=== PATIENT | male | born 1970 | race Caucasian/White ===

== ENCOUNTER 2017-01-03 16:54 | Inpatient (IN) | payer OTHER ==
[~2017-01-03] VITALS: Ht 180.3 cm; Wt 98.9 kg
[~2017-01-03 16:54] MED LIST: KOMBIGLYZE XR 11 TE1 PO; LISINOPRIL 10MG10 MG PO; LOTRISONE 0.05%1 CRE TP
[2017-01-03 17:12] VITALS: BP 119/73
--- NOTE | 2017-01-03 17:28 | HISTORY AND PHYSICAL REPORT ---
Demographics: Admit date: 01/03/17 Chief complaint: Swelling around left buttock PRIMARY DIAGNOSIS: [REIANNAL ABCESS Allergies: Coded Allergies: NO KNOWN ALLERGIES (02/18/12) History of present illness: History of present illness: 46-year-old type II diabetic who presented to the office today with a chief complaint of swelling and drainage from his left buttock over the past 4 or 5 days with fever. No deep injury noted, no other locations of abscess or skin infection noted, but was noted to have perirectal abscess with worrisome features and admitted to hospital for IV antibiotics and surgical consultation Past medical history: Family HX Diabetes Yes CAD No Hypertension Yes Hyperlipidemia No Cancer No TB No General Angina: No [place]: No Hypertension? Yes Hyperlipidemia? No CHF? No COPD? No Asthma? No Hernia? No CVA? No Seizures? No Diabetes? Yes UTI? No Stones? No GB Disease: No Hepatitis? No Cataracts? No Glaucoma? No TB? No Cancer? No Past Surgical HX Previous Surgery?N Current home meds: Reported Medications CLOTRIMAZOLE W/ BETAMETHASONE (Lotrisone Cream) 1 CRE TP BID SAXAGLIPTIN HCL/METFORMIN HCL (Kombiglyze XR 5-1,000 MG Tab) 1 TER PO DAILY LISINOPRIL (Lisinopril) 10 MG PO DAILY Social Hx: Smoking HX Tobacco No Alcohol Alcohol: No Hx of Drug Use Drug Use? 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 Review of systems: Constitutional fever. No: malaise, weakness. Respiratory No: no symptoms reported. Cardiovascular No no symptoms reported Gastrointestinal/Abdominal No no symptoms reported Genitourinary No: no symptoms reported. Musculoskeletal see HPI. Skin see HPI. Neurological No: see HPI. Exam: Lab data for last 24 hours: Microbiology 01/03 UNK BLOOD: Anaerobic Blood Culture - ORD 01/03 UNK BLOOD: Aerobic Blood Culture - ORD 01/03 UNK BLOOD: Anaerobic Blood Culture - ORD 01/03 UNK BLOOD: Aerobic Blood Culture - ORD Admission vital signs: 1ST Vital Signs Result Date Time Pulse Ox 97 01/03 1712 B/P 119/73 01/03 171 O2 Delivery ROOM AIR 01/03 171 Temp 98.1 01/03 171 Pulse 70 01/03 1712 Resp 18 01/04 1712 Exam General appearance: normal appearance, alert, awake Eyes: normal exam, anicteric Neck: normal inspection, non-tender, no carotid bruit, no JVD Cardiovascular: normal exam Respiratory: normal exam, clear to auscultation ABD: normal exam, non-distended, normal bowel sounds Musculoskeletal: normal exam, equal muscle strength Skin: On the underside of the left buttock into the left perineal area is a raised, fluctuant abscess with pain/swelling radiating into the left post. testicle. No drainage noted at this time. Very tender. Plan: Problem List 1. Perianal abscess 2. Diabetes type 2, controlled Plan: Given his diabetic status, over 5 days of symptoms, size and location of the abscess patient needs admitted for surgical evaluation and IV antibiotics. at 1722
[2017-01-03 18:08] VITALS: BP 119/73
--- NOTE | 2017-01-03 18:11 | CONSULT NOTE ---
See Addendum Standard Demographics Patient Demo Date of Consultation: 01/03/17 Referring Provider: Bashir Barksdale MD Reason for Consultation: abscess PRIMARY DIAGNOSIS: [REIANNAL ABCESS Allergies: Coded Allergies: NO KNOWN ALLERGIES (02/18/12) History of Present Illness Chief Complaint: Sore placed below the LEFT testicle History of Present Illness: Patient is a very pleasant 46-year-old male. 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 He states that about 4-5 days ago he developed what was consistent with a small pimple-like skin infection on the LEFT gluteal region. It had apparently enlarged in size and become tender. He had some drainage. He saw his primary physician and was found to have a significant abscess at the location in question. Patient was admitted for inpatient management this evening and surgical consultation. Past Medical History Reports: hypertension, diabetes mellitus. Denies: CAD. Surgical History Previous Surgery?N Allergies Coded Allergies: NO KNOWN ALLERGIES (02/18/12) Medications: Reported Medications CLOTRIMAZOLE W/ BETAMETHASONE (Lotrisone Cream) 1 CRE TP BID SAXAGLIPTIN HCL/METFORMIN HCL (Kombiglyze XR 5-1,000 MG Tab) 1 TER PO DAILY LISINOPRIL (Lisinopril) 10 MG PO DAILY Smoking Hx Tobacco: No Smoker: Never Smoker Type: N/A Packs/day: N/A Are you/the child exposed to second-hand smoke: No Alcohol Alcohol: No Hx of Drug Use Drug Use? No Review of Systems Constitutional No: chills. Skin Positive for: swelling. Immune/allergy No: allergy. Eyes No: vision loss. ENT No: hearing loss. Respiratory No: shortness of air. Cardiovascular No: chest pain. GI No: abdomen. (male) Positive for: testicular pain. Musculoskeletal No: extremity pain. Heme No: adenopathy. Endocrine No: cold intolerance. Neurological Positive for: numbness. Physical Exam Exam General appearance no acute distress Respiratory clear to auscultation Cardiovascular normal heart sounds Genitourinary (male) redness Findings/Data Examination of the perineum in the LEFT anterior location there is significant area of fluctuance. There is some tracking induration with mild erythema to the inferior portion of the LEFT testicle. Plan Plan: This appears to be abscessed hidradenitis of the perineum. This appears to be separate from perirectal location most likely. Seems to be more of a large abscess of the skin and subcutaneous tissues. Plan for the patient to continue with processing for admission. Initiate IV fluids and IV antibiotics. Check blood counts and electrolytes. Make arrangements for incision and drainage tomorrow morning as early as feasible. I explained the nature and details of proposed procedure to the patient. It isn't clear and I am unable to answer how long the patient will need to remain an inpatient. Much of this depends on operative findings and the degree of abscess cavity and type of dressing changes needed. at 1811
[2017-01-03] MEDS ORDERED: AMARYL2 MG PO (18:27)
[2017-01-03] MEDS ORDERED: LOVASTATIN20 MG PO (18:27)
[2017-01-03] MEDS ORDERED: METFORMIN HCL1000 MG PO (18:28)
[2017-01-03] MEDS ORDERED: CITALOPRAM HYDR40 MG PO (18:28)
[2017-01-03] MEDS ORDERED: INVOKANA100 MG PO (18:29)
[2017-01-03 18:37] LABS: HEMOGLOBIN 12.9 g/dL (14.1-18.0); LYMPH % 23.6 % (10-50)
[2017-01-03 19:22] VITALS: BP 135/76
[2017-01-03 19:38] VITALS: BP 135/76
--- NOTE | 2017-01-03 20:37 | RADIOLOGY REPORT PS360 ---
CHEST(2 VIEWS-NOT PORTABLE) Ordering physician: Bashir Barksdale MD Age: 46 years Male INDICATION: . Infection. Abscess on buttocks PROCEDURE: CHEST(2 VIEWS-NOT PORTABLE) FINDINGS: Previous chest film June 2008 used as comparison Lungs well expanded and clear with nothing definitely acute. No pneumothorax. No pleural effusion. Heart normal size. Normal pulmonary vascularity. Hilar and mediastinal structures appear satisfactory. Chest wall unremarkable. T-spine intact. IMPRESSION ----- No significant change since 2008 Lungs clear. Nothing definite acute.
[2017-01-04] VITALS (18 sets, daily range): BP systolic 109–140; BP diastolic 54–72
[2017-01-04 07:18] LABS: HEMOGLOBIN 12.4 g/dL (14.1-18.0)
[2017-01-04 07:19] LABS: LYMPH # 1.9 K/mm3 (0.7-4.5); LYMPH % 23.6 % (10-50)
--- NOTE | 2017-01-04 07:24 | PHARMACY CLINIC NOTE ---
Patient Demographics Patient Demographics Admission date: 01/03/17 Date: 01/04/17 Time: 0724 Allergies Coded Allergies: No Known Allergies (01/03/17) HEIGHT- FT: 5 IN: 11.00 K.884 VTE General Information Labs: Laboratory Tests 01/04 01/03 0630 1820 Hematology Hgb (14.1 - 18.0 g/dL) 12.4 L 12.9 L Hct (42.0 - 52.0 %) 38.5 L 40.4 L Plt Count (142 - 424 K/mm3) 142 142 Disclaimer The following section includes nursing documentation that has been pulled in for pharmacy review. Patient's VTE score: 1 Patient's VTE Risk: VERY LOW RISK Clinical trial participant? No VTE prophylaxis [id number] VTE prophylaxis ordered? Yes Type of prophylaxis/treatment: MITCHELL at 0724
--- NOTE | 2017-01-04 07:53 | ACUTE CARE PROGRESS NOTE (QUA) ---
Progress Notes Subjective Date 01/04/17 Time 0730 Note Patient reports pain is fairly controlled when he is laying still in bed. Pain increases with movement. He is NPO for surgery later later. Alert and oriented x3. Rate and rhythm regular. No edema. No pulses 2+. Lungs sounds clear and equal bilaterally. Abdomen soft, nontender. See surgery note for abscess description. Patient/family reports: pain Nursing reports: no complaints Objective Findings Last VS-Temp:98.1 B/P:118/66 Pulse:55 Resp:18 SaO2:98 ROOM AIR Last weight lbs:218 oz:0 K.884 Method:Floor Scales Reviewed: medications, vital signs, lab results Assessment/Plan Problem List 1. Perianal abscess 2. Diabetes type 2, controlled Patient condition Stable Plan: continue current care This inpt stay is expected to cross 2 MNs from start of care Yes Comments: Continue IV antibiotics. Surgery later this morning. at 0753
--- NOTE | 2017-01-04 09:07 | CONSULT NOTE ---
Pharmacokinetic Consult Date of consult: 01/04/17 Time of consult: 904 Referring provider: DR. UP Reason for consult: VANCOMYCIN DOSING Allergies: Coded Allergies: No Known Allergies (01/03/17) Home Medications: Reported Medications Glimepiride (Amaryl) 2 MG PO DAILY #60 Lovastatin 20 MG PO DAILY #30 METFORMIN HCL (Metformin 1000MG) 1,000 MG PO BID #60 Citalopram Hydrobromide (Citalopram HBr) 40 MG PO DAILY #30 Canagliflozin (Invokana) 100 MG PO DAILY #30 LISINOPRIL (Lisinopril) 10 MG PO DAILY Height (feet): 5 Height (inches): 11.00 Medical History: CAD? No Angina: No [place]: No Hypertension? Yes Hyperlipidemia? No CHF? No DVT? No PE? No COPD? No Asthma? No Anemia? No GERD? No Gastric ulcers? No GI Bleed? No Hernia? No Thyroid Problems? No Hypothyroidism? No CVA? No Seizures? No Diabetes? Yes Insulin Dependent: No Insulin Pump: No Home FSBS? Yes Renal Insuffiency? No UTI? No Stones? No BPH? No GB Disease: No Nephritic Syndrome? No Asplenia? No Hepatitis? No Sickle Cell Disease? No Arthritis? No Migraines? No Cataracts? No Glaucoma? No MRSA? No HIV? No TB? No Anxiety? No Depression? Yes Cancer? No Labs: Laboratory Tests 01/04/17 0630: Sodium 141, Potassium 4.7, Chloride 107, Carbon Dioxide 28, BUN 16, Creatinine 0.8, Estimated Creat Clear 161, Estimated GFR (MDRD) 104, Glucose 119 H, Calcium 8.8, WBC 7.9, RBC 4.55 L, Hgb 12.4 L, Hct 38.5 L, MCV 84.6, RDW 14.2, Plt Count 142, Gran % 69.9, Gran # 5.5, Lymphocytes % 23.6, Monocytes % 6.5, Lymphocytes # 1.9, Monocytes # 0.5, PUBS MCHC 32.2, MCH 27.3 01/04/17 0617: POC Glucose 118 H 01/03/174: POC Glucose 135 H 01/03/17 1820: Sodium 137, Potassium 4.0, Chloride 103, Carbon Dioxide 27, BUN 19 H, Creatinine 0.9, Estimated Creat Clear 143, Estimated GFR (MDRD) 91, Glucose 125 H, Calcium 9.2, Total Bilirubin 0.5, AST 16, ALT 36, Alkaline Phosphatase 69, Total Protein 8.0, Albumin 3.6, Globulin 4.4 H, Albumin/Globulin Ratio 0.8 L, WBC 8.6, RBC 4.78, Hgb 12.9 L, Hct 40.4 L, MCV 84.5, RDW 15.2, Plt Count 142, Gran % 70.4, Gran # 6.1, Lymphocytes % 23.6, Monocytes % 6.0, Lymphocytes # 2.0, Monocytes # 0.5, PUBS MCHC 31.9, MCH 27.0 Microbiology 01/04 1820 BLOOD: Anaerobic Blood Culture - RECD 01/04 1820 BLOOD: Aerobic Blood Culture - RECD 01/04 1820 BLOOD: Anaerobic Blood Culture - RECD 01/04 1820 BLOOD: Aerobic Blood Culture - RECD Problem List: 1. Perianal abscess Plan: BASED ON PATIENT'S FACTORS, RECOMMEND PATIENT CONTINUE WITH VANCOMYCIN 2 GM Q12H AT THIS TIME. PHARMACY WILL FOLLOW DAILY AND ADJUST APPROPRIATE. YANETH JONES, PHARMD at 0907
--- NOTE | 2017-01-04 09:45 | Operative Note ---
Surgeon/Diagnoses Surgeon/Cigar Making Supervisor(s) Date of procedure: 01/04/17 Surgeon: Donta Infante Diagnoses Pre-op diagnosis: Perineal abscess Post-op diagnosis Same Procedure Procedure Procedure: Incision and drainage of complex perineal abscess, abscessed hidradenitis of the perineum Indications: DAVID STARK is a 46 year-old Male with a history of diabetes. For about 5 days he had a area in the LEFT anterior perineum which began as what he describes as a pimple-like area. However it enlarged and became more tender and he had some drainage. He had presented to his primary physician yesterday and was found to have significant abscess. He was admitted for inpatient management and surgical consultation. Patient had what appeared to be a large abscess consistent with abscess hidradenitis. Plan was made for incision and drainage. Findings: Moderately large tunneling abscess. Abscess tunneled to the LEFT inguinal area. Procedure Description: Consent was obtained and patient was taken to the operating room. Anesthesia was induced. He was positioned in lithotomy position. He was prepped and draped. Incision was made at the site of most prominent fluctuance with some skin necrosis. There was some mildly purulent cloudy fluid which exuded from the wound. This was sent for culture. Wound was probed. There was significant tunneling anteriorly to the inguinal area. Incision was opened several centimeters, approximate 4 cm in length. Wound was probed and any loculations were broken free. Entirety of the tunneling was not opened at this time. Wound was thoroughly irrigated. Hemostasis was achieved. Local anesthetic was infiltrated. Wound was packed with 2 inch acting gauze. Clean dry sterile dressing was applied. EBL (ml): 25 Anesthesia: Gen. Specimens: Culture sent Disposition Disposition: To PACU at 0948
--- NOTE | 2017-01-04 09:52 | Anesthesia Record ---
Anesthesia Record Part I Total IV fluids: 500 EBL (ml): 0 Urine Output: 0 B/P: 150/80 % SaO2: 95 Pulse: 70 Resps: 12 Temp: 97.6 Patient is: Awake, Stable Stable to PACU at: 0950 at 0959
--- NOTE | 2017-01-04 09:52 | Anesthesia Record ---
Anesthesia Record Part II Discharge time: 1020 Destination: Same day surgery PACU nurse assessment review? Yes Patient is: Awake, Stable Anesthesia complications? No at [phone]
[2017-01-04] MEDS ORDERED: NYSTATIN O15 GM/TUBE EX (11:30)
[2017-01-05] VITALS (7 sets, daily range): BP systolic 110–132; BP diastolic 51–74
--- NOTE | 2017-01-05 07:42 | ACUTE CARE PROGRESS NOTE (QUA) ---
Progress Notes Subjective Date 01/05/17 Time 0741 Assessment/Plan Problem List 1. Perianal abscess 2. Diabetes type 2, controlled This inpt stay is expected to cross 2 MNs from start of care Yes Antibiotic Stewardship (2) Current Culture Results Microbiology 01/04 1510 BUTTOCK: Antimicrobic Susceptibility - RECD 01/04 1510 BUTTOCK: Anaerobic Culture Result 4 - RECD 01/04 1510 BUTTOCK: Anaerobic Culture Result 3 - RECD 01/04 1510 BUTTOCK: Anaerobic Culture Result 2 - RECD 01/04 1510 BUTTOCK: Anaerobic Culture Result 1 - RECD 01/04 1510 BUTTOCK: Anaerobic Culture - RECD 01/04 1510 BUTTOCK: Abscess Culture - RECD 01/03 1820 BLOOD: Anaerobic Blood Culture - RECD 01/03 1820 BLOOD: Aerobic Blood Culture - RECD Infxn that will respond? Yes Right drug,dose,and route? Yes More targeted antbx? No (CULTURE RESULTS STILL PENDING) at 0742
--- NOTE | 2017-01-05 07:42 | ACUTE CARE PROGRESS NOTE (QUA) ---
Progress Notes Subjective Date 01/05/17 Time 0741 Assessment/Plan Problem List 1. Perianal abscess 2. Diabetes type 2, controlled This inpt stay is expected to cross 2 MNs from start of care Yes Antibiotic Stewardship (2) Current Culture Results Microbiology 01/04 1510 BUTTOCK: Antimicrobic Susceptibility - RECD 01/04 1510 BUTTOCK: Anaerobic Culture Result 4 - RECD 01/04 1510 BUTTOCK: Anaerobic Culture Result 3 - RECD 01/04 1510 BUTTOCK: Anaerobic Culture Result 2 - RECD 01/04 1510 BUTTOCK: Anaerobic Culture Result 1 - RECD 01/04 1510 BUTTOCK: Anaerobic Culture - RECD 01/04 1510 BUTTOCK: Abscess Culture - RECD 01/03 1820 BLOOD: Anaerobic Blood Culture - RECD 01/03 1820 BLOOD: Aerobic Blood Culture - RECD Infxn that will respond? Yes Right drug,dose,and route? Yes More targeted antbx? No (CULTURE RESULTS STILL PENDING) at 0742
--- NOTE | 2017-01-05 07:50 | ACUTE CARE PROGRESS NOTE (QUA) ---
Progress Notes Subjective Date 01/05/17 Time 0748 Note Patient has much less pressure around the rectal area. Some pain around the wound site. Otherwise no complaints. Alert, oriented. Wound exam deferred to surgery. Objective Findings Last VS-Temp:98.2 B/P:115/74 Pulse:47 Resp:18 SaO2:100 ROOM AIR Last weight lbs:218 oz:0 K.884 Method:Floor Scales Assessment/Plan Problem List 1. Perianal abscess 2. Diabetes type 2, controlled Patient condition Improving Plan: continue current care, continue wound care. Await culture results, plan for discharge when wound care schedule is finalized. This inpt stay is expected to cross 2 MNs from start of care Yes at 0747
--- NOTE | 2017-01-05 09:34 | CONSULT NOTE ---
Pharmacokinetic Consult Date of consult: 01/05/17 Time of consult: 931 Referring provider: DR. UP Reason for consult: VANCOMYCIN DOSING Allergies: Coded Allergies: No Known Allergies (01/04/17) Home Medications: Reported Medications Nystatin (Nystatin Ointment; 15GM Tube) 15 GM EX TID Glimepiride (Amaryl) 2 MG PO DAILY #60 Lovastatin 20 MG PO DAILY #30 METFORMIN HCL (Metformin 1000MG) 1,000 MG PO BID #60 Citalopram Hydrobromide (Citalopram HBr) 40 MG PO DAILY #30 Canagliflozin (Invokana) 100 MG PO DAILY #30 LISINOPRIL (Lisinopril) 10 MG PO DAILY Height (feet): 5 Height (inches): 11.00 Medical History: CAD? No Angina: No [place]: No Hypertension? Yes Hyperlipidemia? No CHF? No DVT? No PE? No COPD? No Asthma? No Anemia? No GERD? No Gastric ulcers? No GI Bleed? No Hernia? No Thyroid Problems? No Hypothyroidism? No CVA? No Seizures? No Diabetes? Yes Insulin Dependent: No Insulin Pump: No Home FSBS? Yes Renal Insuffiency? No UTI? No Stones? No BPH? No GB Disease: No Nephritic Syndrome? No Asplenia? No Hepatitis? No Sickle Cell Disease? No Arthritis? No Migraines? No Cataracts? No Glaucoma? No MRSA? No HIV? No TB? No Anxiety? No Depression? Yes Cancer? No Labs: Laboratory Tests 01/05/17 0836: Vancomycin Trough 8.5 01/05/17 0642: POC Glucose 115 H 01/04/17 2006: POC Glucose 255 H 01/04/17 1706: POC Glucose 252 H 01/04/17 1140: POC Glucose 177 H Microbiology 01/04 1510 BUTTOCK: Antimicrobic Susceptibility - RECD 01/04 1510 BUTTOCK: Anaerobic Culture Result 4 - RECD 01/04 1510 BUTTOCK: Anaerobic Culture Result 3 - RECD 01/04 1510 BUTTOCK: Anaerobic Culture Result 2 - RECD 01/04 1510 BUTTOCK: Anaerobic Culture Result 1 - RECD 01/04 1510 BUTTOCK: Anaerobic Culture - RECD 01/04 1510 BUTTOCK: Abscess Culture - RECD Plan: BASED ON PATIENT'S VANCOMYCIN TROUGH LEVEL OF 8.5 MCG/ML, RECOMMEND CHANGING DOSE TO VANCOMYCIN 1750 MG Q8H AT THIS TIME. WILL OBTAIN TROUGH LEVEL PRIOR TO DOSE IN AM. PHARMACY WILL FOLLOW DAILY AND ADJUST APPROPRIATE. YANETH JONES PHARMD at 0934
--- NOTE | 2017-01-05 13:49 | SURGEON PROGRESS NOTE ---
Subjective data Subjective data: DAVID STARK is a 46 M .Patient denies complaint of nausea and vomitting.He reports his last pain level as 0 on a 0-10 pain scale. Patient still with throbbing pain but overall better. On Zosyn and Vancomycin. Assessment findings Assessment Exam Skin: Abscess Patient plan Plan: Antibiotics Additional data: Dressing done with nurse at bedside. Wound with less erythema. Clean. Patient experienced quite a bit of pain with dressing change. Would check cultures and cover with outpatient antibiotics based on cultures. Ultimately would plan for once daily dressing change likely with 1" plain Nugauze. at 3206
[2017-01-06 04:10] VITALS: BP 112/54
--- NOTE | 2017-01-06 08:11 | SURGEON PROGRESS NOTE ---
Subjective data Subjective data: DAVID STARK is a 46 M .Patient denies complaint of nausea and vomitting.He reports his last pain level as 0 on a 0-10 pain scale. Patient had second dressing change around midnight. He had some pain with this. Assessment findings Assessment Exam General appearance: normal appearance, alert Comment: On examination wound is clean. Persistent induration with less erythema. Patient plan Plan: Antibiotics Additional data: May be able to discharge with outpatient care. However, if cultures reveal MRSA given the size of the abscess would recommend more agressive therapy than Bactrim. May need oral Zyvox or IV Daptomycin. at 0810
[2017-01-06 08:30] VITALS: BP 109/62
[2017-01-06 08:55] VITALS: BP 109/62
[2017-01-06] MEDS ORDERED: BACTRIM DS 8001 TA1 PO (08:59)
[2017-01-06] MEDS ORDERED: CLINDAMYCIN HC300 MG PO (09:00)
[2017-01-06] MEDS ORDERED: TYLENOL WITH CO1 TA1 PO (09:01)
--- NOTE | 2017-01-06 09:30 | CONSULT NOTE ---
Pharmacokinetic Consult Date of consult: 01/06/17 Time of consult: 928 Referring provider: DR. UP Reason for consult: VANCOMYCIN TROUGH LEVEL Allergies: Coded Allergies: No Known Allergies (01/04/17) Home Medications: Reported Medications Glimepiride (Amaryl) 2 MG PO DAILY #60 Lovastatin 20 MG PO DAILY #30 METFORMIN HCL (Metformin 1000MG) 1,000 MG PO BID #60 Citalopram Hydrobromide (Citalopram HBr) 40 MG PO DAILY #30 Canagliflozin (Invokana) 100 MG PO DAILY #30 LISINOPRIL (Lisinopril) 10 MG PO DAILY Discontinued Reported Medications Nystatin (Nystatin Ointment; 15GM Tube) 15 GM EX TID Height (feet): 5 Height (inches): 11.00 Medical History: CAD? No Angina: No [place]: No Hypertension? Yes Hyperlipidemia? No CHF? No DVT? No PE? No COPD? No Asthma? No Anemia? No GERD? No Gastric ulcers? No GI Bleed? No Hernia? No Thyroid Problems? No Hypothyroidism? No CVA? No Seizures? No Diabetes? Yes Insulin Dependent: No Insulin Pump: No Home FSBS? Yes Renal Insuffiency? No UTI? No Stones? No BPH? No GB Disease: No Nephritic Syndrome? No Asplenia? No Hepatitis? No Sickle Cell Disease? No Arthritis? No Migraines? No Cataracts? No Glaucoma? No MRSA? No HIV? No TB? No Anxiety? No Depression? Yes Cancer? No Labs: Laboratory Tests 01/06/17 0840: Vancomycin Trough 15.5 H 01/06/17 0607: POC Glucose 112 H 01/05/17 2011: POC Glucose 161 H 01/05/17 1632: POC Glucose 130 H 01/05/17 1118: POC Glucose 175 H Problem List: 1. Perianal abscess Plan: BASED ON VANCOMYCIN TROUGH LEVEL, RECOMMEND CONTINUING VANCOMYCIN 1750 MG IV Q8H. PATIENT IS BEING DISCHARGED TODAY. at 0930
--- NOTE | 2017-01-06 09:38 | ACUTE CARE PROGRESS NOTE (QUA) ---
Progress Notes Subjective Date 01/06/17 Time 0830 Note Patient is resting in bed, continues to have some pain at surgery site. Alert and oriented. Rate and rhythm regular. No edema. Pulses 2+. Lung sounds clear and equal. Abdomen soft. See surgery note for wound assessment. Patient/family reports: pain Nursing reports: no complaints Objective Findings Last VS-Temp:98.5 B/P:109/62 Pulse:48 Resp:16 SaO2:97 ROOM AIR Last weight lbs:218 oz:0 K.884 Method:Floor Scales Reviewed: medications, vital signs, lab results Assessment/Plan Problem List 1. Perianal abscess 2. Diabetes type 2, controlled Patient condition Improving Plan: initiate discharge plan This inpt stay is expected to cross 2 MNs from start of care Yes Comments: Culture MRSA positive. Susceptible to clindamycin and bactrim. D/C home on these antibiotics. Daily dressing changes per outpatient therapy. FU with Dr. nIfante on Tuesday and Dr. Barksdale in one week. at 0938
--- NOTE | 2017-01-06 09:38 | ACUTE CARE PROGRESS NOTE (QUA) ---
Progress Notes Subjective Date 01/06/17 Time 0830 Note Patient is resting in bed, continues to have some pain at surgery site. Alert and oriented. Rate and rhythm regular. No edema. Pulses 2+. Lung sounds clear and equal. Abdomen soft. See surgery note for wound assessment. Patient/family reports: pain Nursing reports: no complaints Objective Findings Last VS-Temp:98.5 B/P:109/62 Pulse:48 Resp:16 SaO2:97 ROOM AIR Last weight lbs:218 oz:0 K.884 Method:Floor Scales Reviewed: medications, vital signs, lab results Assessment/Plan Problem List 1. Perianal abscess 2. Diabetes type 2, controlled Patient condition Improving Plan: initiate discharge plan This inpt stay is expected to cross 2 MNs from start of care Yes Comments: Culture MRSA positive. Susceptible to clindamycin and bactrim. D/C home on these antibiotics. Daily dressing changes per outpatient therapy. FU with Dr. Infante on Tuesday and Dr. Barksdale in one week. at 0938
--- NOTE | 2017-01-06 09:43 | DISCHARGE SUMMARY STANDARD ---
See Addendum Demographics Admit date: 01/03/17 Discharge date: 01/06/17 History of present illness History of present illness 46-year-old type II diabetic who presented to the office today with a chief complaint of swelling and drainage from his left buttock over the past 4 or 5 days with fever. No deep injury noted, no other locations of abscess or skin infection noted, but was noted to have perirectal abscess with worrisome features and admitted to hospital for IV antibiotics and surgical consultation Hospital Course Hospital Course: Patient was admitted to acute care for IV antibiotics. Surgery was consulted. He was taken to the OR for I&D of perianal abscess. See operative note. Cultures were obtained which showed MRSA. Susceptible to clindamycin and bactrim. D/C home on these antibiotics. Tylenol #3 for pain. See medication reconciliation for complete list. Daily dressing changes per outpatient therapy. FU with Dr. Infante on Tuesday and Dr. Barksdale in one week. Discharge diagnoses Problem List 1. Perianal abscess 2. Diabetes type 2, controlled Medications Medications: Discharge meds are as noted. Follow up Follow up in office in: 4 DAYS with: Donta Infante MD at 0943 at 2031
[2017-01-06 16:30] VITALS: BP 138/72
[2017-01-06 19:45] VITALS: BP 142/71
[2017-01-06 20:02] VITALS: BP 142/71
[2017-01-07 04:45] VITALS: BP 126/67
[2017-01-07] MEDS ORDERED: TYLENOL WITH CO1 TA1 PO (07:33)
[2017-01-07] MEDS ORDERED: CLINDAMYCIN HC300 MG PO (07:33)
[2017-01-07] MEDS ORDERED: BACTRIM DS 8001 TA1 PO (07:33)
[2017-01-07 08:00] VITALS: BP 150/87
--- NOTE | 2017-01-07 08:07 | SURGEON PROGRESS NOTE ---
Subjective data Subjective data: DAVID STARK is a 46 M .Patient denies complaint of nausea and vomitting.He reports his last pain level as 0 on a 0-10 pain scale. Patient feeling better. Somewhat less pain. Assessment findings Assessment Exam General appearance: normal appearance, alert Patient plan Plan: Antibiotics Additional data: Patient being Discharged home on oral antibiotics and outpatient dressing changes. at 0806
[2017-01-07 08:47] VITALS: BP 150/87
[2017-01-07 11:15] VITALS: BP 150/87
== END 2017-01-07 11:25 | disposition home or self-care (01) | DRG 581 ==
LOC: 2ND 16:54
PROVIDERS: Internal Medicine Adolescent Medicine
PROC: 0H99XZZ Drainage of Perineum Skin, External Approach (ICD-10-PCS; principal; 2017-01-03)
DX: L02.215 Cutaneous abscess of perineum (principal); I10 Essential (primary) hypertension; B95.62 Methicillin resistant Staphylococcus aureus infection as the cause of diseases classified elsewhere; L73.2 Hidradenitis suppurativa; E11.9 Type 2 diabetes mellitus without complications
CPT/HCPCS: J2405; J2543; J3370

== ENCOUNTER 2017-01-08 11:13 | Outpatient (CLI) | payer OTHER | END 2017-01-08 12:18 | disposition home or self-care (01) | LOC: COP 11:13 | DX: K61.0 Anal abscess (principal) ==

== ENCOUNTER 2017-01-09 11:05 | Outpatient (CLI) | payer OTHER | END 2017-01-09 11:30 | disposition home or self-care (01) | LOC: COP 11:05 | DX: K61.0 Anal abscess (principal); Z48.01 Encounter for change or removal of surgical wound dressing ==

== ENCOUNTER 2017-01-10 14:30 | Outpatient (CLI) | payer OTHER | END 2017-01-10 14:45 | disposition home or self-care (01) | LOC: COP 14:30 | DX: K61.0 Anal abscess (principal); Z48.01 Encounter for change or removal of surgical wound dressing ==

== ENCOUNTER 2017-01-11 15:50 | Outpatient (CLI) | payer OTHER | END 2017-01-11 16:10 | disposition home or self-care (01) | LOC: COP 15:50 | DX: K61.0 Anal abscess (principal); Z48.01 Encounter for change or removal of surgical wound dressing ==

== ENCOUNTER 2017-01-12 11:30 | Outpatient (CLI) | payer OTHER | END 2017-01-12 13:00 | disposition home or self-care (01) | LOC: COP 11:30 | DX: K61.0 Anal abscess (principal); Z48.01 Encounter for change or removal of surgical wound dressing ==

== ENCOUNTER → 2017-01-13 16:20 | Outpatient (CLI) | payer OTHER | END | disposition home or self-care (01) | LOC: COP 16:00 | DX: K61.0 Anal abscess (principal); Z48.01 Encounter for change or removal of surgical wound dressing ==

== ENCOUNTER 2017-01-14 13:00 | Outpatient (CLI) | payer OTHER | END 2017-01-14 13:30 | disposition home or self-care (01) | LOC: COP 13:00 | DX: K61.0 Anal abscess (principal); Z48.01 Encounter for change or removal of surgical wound dressing ==

== ENCOUNTER → 2017-01-15 | Outpatient (CLI) | payer OTHER ==
[~2017-01-15] MED LIST changes: +AMARYL2 MG PO; +BACTRIM DS 8001 TA1 PO; +CITALOPRAM HYDR40 MG PO; +CLINDAMYCIN HC300 MG PO; +INVOKANA100 MG PO; +LOVASTATIN20 MG PO; +METFORMIN HCL1000 MG PO; +NYSTATIN O15 GM/TUBE EX; +TYLENOL WITH CO1 TA1 PO
[2017-01-15 13:30] VITALS: BP 151/79
== END ==
LOC: COP 13:07
DX: K61.0 Anal abscess (principal); Z48.01 Encounter for change or removal of surgical wound dressing
CPT/HCPCS: G0463

== ENCOUNTER → 2017-01-16 | Outpatient (CLI) | payer OTHER ==
[2017-01-16 14:32] VITALS: BP 143/69
== END ==
LOC: COP 13:17
DX: K61.0 Anal abscess (principal); Z48.01 Encounter for change or removal of surgical wound dressing
CPT/HCPCS: G0463

== ENCOUNTER 2017-01-17 12:40 | Outpatient (CLI) | payer OTHER | END 2017-01-17 13:00 | disposition home or self-care (01) | LOC: COP 12:40 | DX: K61.0 Anal abscess (principal); Z48.01 Encounter for change or removal of surgical wound dressing | CPT/HCPCS: G0463 ==

== ENCOUNTER 2017-01-18 12:00 | Outpatient (CLI) | payer OTHER | END 2017-01-18 12:30 | disposition home or self-care (01) | LOC: COP 12:00 | DX: K61.0 Anal abscess (principal); Z48.01 Encounter for change or removal of surgical wound dressing | CPT/HCPCS: G0463 ==

== ENCOUNTER 2017-01-20 14:30 | Outpatient (CLI) | payer OTHER | END 2017-01-20 15:00 | disposition home or self-care (01) | LOC: COP 14:30 | DX: K61.0 Anal abscess (principal); Z48.01 Encounter for change or removal of surgical wound dressing | CPT/HCPCS: G0463 ==